=== PATIENT | female | born 2005 | race Caucasian/White ===

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

== ENCOUNTER → 2024-08-06 10:49 | Outpatient (BNVA) | payer BC, MEDICAID, SELFPAY | PROVIDERS: Visit Provider Nurse Practitioner Family | DX: R50.9 Fever, unspecified (principal) | CPT/HCPCS: 87400; 87426 ==

== ENCOUNTER 2024-12-10 15:19 | Emergency (ER) | payer BC, MEDICAID, SELFPAY ==
[2024-12-10 15:22] VITALS: BP 108/69; PULSE 67; RESP 17; TEMP 36.3; O2SAT 100; BMI 21.6
[2024-12-10 15:42] LABS: Basophils % 1.1 %; Eosinophils # 0.2 10^3/uL (0.0-0.8); Eosinophils % 4.6 %; Hematocrit 41.3 % (36-47); Lymphocytes # 1.4 10^3/uL (1.5-6.5); Mean Corpuscular HGB Conc 32.2 g/dL (30-55); Mean Corpuscular Hemoglobin 27.6 pg (27-33); Mean Corpuscular Volume 85.7 fl (85-98); Mean Platelet Volume 9.5 fL (7.4-10.4); Monocytes # 0.3 10^3/uL (0.2-0.9); Monocytes % 9.4 %; Neutrophils # 1.61 10^3/uL (1.8-8.0); Neutrophils % 45.9 %; Nucleated Red Blood Cells % 0 %; Platelet Count 326 10^3/cmm (157-399); Red Blood Count 4.82 10^6/uL (3.85-5.65); Red Cell Distribution Width 13.2 % (12.1-15.1); White Blood Count 3.51 10^3/uL (4.5-13.0)
[2024-12-10 15:56] VITALS: BP 113/62; PULSE 84; O2SAT 97
--- NOTE | 2024-12-10 16:03 | W.ED.ABDPA2 ---
HPI - Abdominal Pain General: Chief Complaint: Abdominal Pain Stated Complaint: abdominal pain Time Seen by Provider: 12/10/24 15:34 History of Present Illness: 19-year-old female presents emergency room with epigastric right upper quadrant abdominal pain and nausea it has been going on for the last 3 to 4 days. Worse when she eats relieved by not eating. She has had it to slightly lesser extent previously but cannot give me a timeframe of it. No fever sweats or chills no medic easy melena hematemesis or coffee-ground emesis. Associated Symptoms: Reports nausea and vomiting; Denies chills, dysuria and fever(s) Related Data Home Medications ?Medication ?Instructions ?Recorded ?Confirmed acetaminophen 500 mg tablet 1,000 mg PO Q6H PRN Fever Or Pain 12/10/24 12/10/24 (Tylenol Extra Strength) Previous Rx's ?Medication ?Instructions ?Recorded pantoprazole 40 mg tablet,delayed 40 mg PO DAILY #30 tabs 12/10/24 release sulfamethoxazole 800 1 tab PO BID 7 days #14 tabs 12/10/24 mg-trimethoprim 160 mg tablet (Bactrim DS) Allergies Allergy/AdvReac Type Severity Reaction Status Date / Time No Known Allergies Allergy Verified 12/10/24 15:24 Review of Systems Const: Denies: fever(s) or chills Card: Denies: chest pain Resp: Denies: dyspnea GI: Reports: abdominal pain, nausea and vomiting : Denies: dysuria, urinary frequency or urinary urgency Musc: Denies: neck pain or back pain Skin/Breast: Denies: rash [facility] ED PFSH: Medical History (Updated 12/10/24 @ 16:46 by Luis Van DO) BMI (body mass index), pediatric, 5% to less than 85% for age Surgical History No history of previous surgery Family History Denies family history of Colon cancer Ovarian cancer Diabetes Heart disease Hypercholesteremia Breast cancer Hypertension Uterine cancer Stroke Social History Smoking and tobacco/nicotine status: never used tobacco/nicotine Second hand smoke exposure: No Alcohol intake: never Substance/Drug Use: never Adopted: Yes Lives independently: Yes Household members: other Marital status: Single Highest education level completed: 9th Grade service: No Current occupational status: employed Sexually active: No Current gender identity: Female Special yulia needs: No Agree to transfusion: Yes Physical Exam Const: GENERAL APPEARANCE: cooperative ORIENTATION/CONSCIOUSNESS: Yes awake, Yes oriented to person, Yes oriented to place and Yes oriented to time HENMT: COMMON NORMALS: normocephalic, atraumatic and hearing grossly normal bilaterally HEAD & SCALP: normocephalic and atraumatic Resp: COMMON NORMALS: normal respiratory effort, No retractions, No use of accessory muscles and clear to auscultation bilaterally AUSCULTATION: clear to auscultation bilaterally Cardio: COMMON NORMALS: regular rate, regular rhythm and No murmurs present (Cardio) RATE: regular rate RHYTHM: regular rhythm GI: COMMON NORMALS: No hepatosplenomegaly present AUSCULTATION: Yes normoactive bowel sounds PALPATION: Yes Tenderness to palpation present (GI) Details: RUQ, No Guarding due to palpation present (GI) and Yes No hepatosplenomegaly present Extremity: COMMON NORMALS: normal to inspection, capillary refill normal, no clubbing, cyanosis or edema, no calf tenderness and no pedal edema Neuro: SENSORIUM/ORIENTATION: Yes oriented to person, Yes oriented to place and Yes oriented to time Skin: COMMON NORMALS: no rashes or lesions noted GENERAL SKIN EXAM: no rashes or lesions noted Course Vital Signs: Vital signs: Vital Signs Temperature 97.4 F L 12/10/24 15:22 Pulse Rate 80 12/10/24 17:04 Respiratory Rate 17 12/10/24 15:22 Blood Pressure 127/62 12/10/24 17:04 Pulse Oximetry 98 12/10/24 17:04 Oxygen Delivery Me thod Room Air 12/10/24 16:37 MDM - Abdominal Pain Medical Decision Making Patient has cystitis suspect she also has some reflux disease. She seemed to have little bit of a [place] sign initially on exam however ultrasound of gallbladder and liver enzymes are normal. She could have some biliary dyskinesia if her symptoms persist she may need further evaluation for now we will treat her cystitis additionally start her on pantoprazole have her follow-up with her primary care doctor return if has worsening or changes symptoms Medical Records I reviewed the patient's medical records. Lab Data I reviewed the patient's lab results. 12/10/24 15:35 12/10/24 15:35 Labs/Radiology: Radiology Impressions Gallbladder Ultrasound 12/10/24 16:12 IMPRESSION: No acute findings. Laboratory Results WBC 3.51 10^3/uL (4.5-13.0) L 12/10/24 15:35 RBC 4.82 10^6/uL (3.85-5.65) 12/10/24 15:35 Hgb 13.30 g/dL (12.4-14.8) 12/10/24 15:35 Hct 41.3 % (36-47) 12/10/24 15:35 MCV 85.7 fl (85-98) 12/10/24 15:35 MCH 27.6 pg (27-33) 12/10/24 15:35 MCHC 32.2 g/dL (30-55) 12/10/24 15:35 RDW 13.2 % (12.1-15.1) 12/10/24 15:35 Plt Count 326 10^3/cmm (157-399) 12/10/24 15:35 MPV 9.5 fL (7.4-10.4) 12/10/24 15:35 Neut % (Auto) 45.9 % 12/10/24 15:35 Lymph % (Auto) 39.0 % 12/10/24 15:35 [place] % (Auto) 9.4 % 12/10/24 15:35 Eos % (Auto) 4.6 % 12/10/24 15:35 Baso % (Auto) 1.1 % 12/10/24 15:35 Neut # (Auto) 1.61 10^3/uL (1.8-8.0) L 12/10/24 15:35 Lymph # (Auto) 1.4 10^3/uL (1.5-6.5) L 12/10/24 15:35 [place] # (Auto) 0.3 10^3/uL (0.2-0.9) 12/10/24 15:35 Eos # (Auto) 0.2 10^3/uL (0.0-0.8) 12/10/24 15:35 Baso # (Auto) 0.0 10^3/uL (0.0-0.1) 12/10/24 15:35 Nucleated RBC % (auto) 0 % 12/10/24 15:35 Nucleated RBCs # 0.0 /100WBC 12/10/24 15:35 Sodium 142 mmol/L (136-145) 12/10/24 15:35 Potassium 4.0 mmol/L (3.5-5.1) 12/10/24 15:35 Chloride 107 mmol/L (98-107) 12/10/24 15:35 Carbon Dioxide 25 mmol/L (22-29) 12/10/24 15:35 Anion Gap 14.0 (5-19) 12/10/24 15:35 BUN 9 mg/dL (6-20) 12/10/24 15:35 Creatinine 0.8 mg/dL (0.5-0.9) 12/10/24 15:35 GFR Calculation 91.4 mL/min (90-130) 12/10/24 15:35 Glucose 85 mg/dL (65-115) 12/10/24 15:35 Calculated Osmolality 292 mOsm/kg (285-295) 12/10/24 15:35 Calcium 9.0 mg/dL (8.5-10.5) 12/10/24 15:35 Total Bilirubin 0.2 mg/dL (0.15-1.2) 12/10/24 15:35 AST 16 U/L (0-32) 12/10/24 15:35 ALT 13 U/L (0-33) 12/10/24 15:35 Alkaline Phosphatase 112 U/L (35-105) H 12/10/24 15:35 Total Protein 7.4 g/dL (6.6-8.7) 12/10/24 15:35 Albumin 4.4 g/dL (3.5-5.2) 12/10/24 15:35 Globulin 3.0 g/dL (1.3-4.6) 12/10/24 15:35 Lipase 31 U/L (13-60) 12/10/24 15:35 HCG, Qual Negative (Negative) 12/10/24 15:35 Urine Color Yellow (Yellow) 12/10/24 15:49 Urine Appearance Slightly cloudy (CLEAR) 12/10/24 15:49 Urine pH 5 (5-7) 12/10/24 15:49 Ur Specific [place] 1.015 (1.005-1.030) 12/10/24 15:49 Urine Protein Trace (Negative) H 12/10/24 15:49 Urine Glucose (UA) Norm (Normal) 12/10/24 15:49 Urine Ketones Negative (Negative) 12/10/24 15:49 Urine Blood Neg (Negative) 12/10/24 15:49 Urine Nitrate Negative (Negative) 12/10/24 15:49 Urine Bilirubin Neg (Negative) 12/10/24 15:49 Urine Urobilinogen Norm mg/dL (Negative) 12/10/24 15:49 Ur Leukocyte Esterase 2+ (Negative) A 12/10/24 15:49 Urine RBC 0-2 /hpf (0-2) 12/10/24 15:49 Urine WBC 51-100 /hpf (0-5) H 12/10/24 15:49 Ur Squamous Epith Cells 11-20 /hpf (0-5) H 12/10/24 15:49 Amorphous Sediment Not Reportable 12/10/24 15:49 Urine Bacteria 4+ /hpf (NONE) H 12/10/24 15:49 Hyaline Casts 2.46 /lpf 12/10/24 15:49 Influenza A (PCR) Negative (Negative) 12/10/24 16:12 Influenza Type B (PCR) Negative (Negative) 12/10/24 16:12 RSV (PCR) Negative (Negative) 12/10/24 16:12 SARS-CoV-2 (PCR) Negative (Negative) 12/10/24 16:12 All radiology interpretation(s) finalized by discharge Discharge Plan Discharge Patient Disposition: Home Clinical Impression: Cystitis, GERD (gastroesophageal reflux disease) Condition: Stable Prescriptions: New sulfamethoxazole-trimethoprim [Bactrim DS] 800-160 mg tablet 1 tab PO BID 7 Days Qty: 14 0RF pantoprazole 40 mg tablet,delayed release (DR/EC) 40 mg PO DAILY Qty: 30 0RF No Action acetaminophen [Tylenol Extra Strength] 500 mg Tablet 1,000 mg PO Q6H PRN (Reason: Fever Or Pain) Discharge Orders: Discharge ED (Routine); Ordered 12/10/24 Ordered By: Luis Van Discharge Diet: Usual diet Discharge Activity: Resume usual activity Patient Instructions: Opioid Safety, Pain Management Activity Restrictions/Additional Instructions: Thank you for choosing [facility] for your healthcare needs today. It is very important that you follow up as instructed or that you return to the Emergency Department should you have concerns or if your condition changes or worsens in any way. You are seen emergency room with complaint of abdominal discomfort nausea vomiting. You did have a bladder infection we evaluated your gallbladder there is no sign of acute cholecystitis. Additionally you likely have some reflux based on the symptoms you reported we will start you on pantoprazole Print Language: Sinhala Coding Level of Care Code ED Aircraft Maintenance Instructor for Tal Chairez
[2024-12-10 16:04] LABS: Bacteria Urine 4+ /hpf; Hyaline Casts Urine 2.46 /lpf; RBC Urine 0-2 /hpf (0-2); WBC Urine 51-100 /hpf (0-5)
[2024-12-10 16:05] LABS: HCG, Serum Qual Negative (Negative)
[2024-12-10 16:09] LABS: Alanine Aminotransferase 13 U/L (0-33); Albumin Level 4.4 g/dL (3.5-5.2); Alkaline Phosphatase 112 U/L (35-105); Aspartate Amino Transferase 16 U/L (0-32); Blood Urea Nitrogen 9 mg/dL (6-20); Carbon Dioxide 25 mmol/L (22-29); Chloride 107 mmol/L (98-107); Creatinine Clr Calc Pharmacy 94.8728; Glomerular Filtration Rate 91.4 mL/min (90-130); Glucose 85 mg/dL (65-115); Lipase 31 U/L (13-60); Osmolality Calculated 292 mOsm/kg (285-295); Sodium 142 mmol/L (136-145); Total Bilirubin 0.2 mg/dL (0.15-1.2); Total Protein 7.4 g/dL (6.6-8.7)
--- NOTE | 2024-12-10 16:12 | USR_ITS ---
PROCEDURE INFORMATION: Exam: US Abdomen, Limited; Right Upper Quadrant Exam date and time: 12/10/2024 4:23 PM Age: 19 years old Clinical indication: Abdominal pain; Tenderness; Right upper quadrant (ruq); Additional info: Ruq abd pain TECHNIQUE: Imaging protocol: Real time ultrasound of the abdomen with image documentation. Limited exam focused on the right upper quadrant. COMPARISON: No relevant prior studies available. FINDINGS: Liver: Normal. No masses. Gallbladder: Normal. No gallstones. There is no gallbladder wall thickening. Biliary ducts: The common bile duct measures 2 mm within normal limits. Pancreas: Visualized pancreas is unremarkable. Right kidney: Right kidney measures 10.4 cm in length. No mass. No hydronephrosis. US/US gall bladder 23050 IMPRESSION: No acute findings.
[2024-12-10 16:13] LABS: Add Urine Microscopic? YES; Bilirubin Urine Neg (Negative); Blood Urine Neg (Negative); Glucose Urine UA Norm (Normal); Ketones Urine Negative (Negative); Leukocyte Esterase Urine 2+ (Negative); Nitrate Urine Negative (Negative); Protein Urine Trace (Negative); Specific Gravity, Urine 1.015 (1.005-1.030); Urine Appearance Slightly Cloudy (CLEAR); Urine Color Yellow (Yellow); Urobilinogen Urine Norm (Negative); pH Urine 5 (5-7)
[2024-12-10 16:14] LABS: Add Urine Culture? Yes
[2024-12-10 16:37] VITALS: BP 121/37; PULSE 69; O2SAT 98
[2024-12-10 16:56] LABS: Influenza A NEGATIVE (Negative); Influenza B NEGATIVE (Negative); Respiratory Syncytial Virus Ce NEGATIVE (Negative); SARS-CoV-2 PCR NEGATIVE (Negative)
[2024-12-10 17:04] VITALS: BP 127/62; PULSE 80; O2SAT 98
== END 2024-12-10 17:05 | disposition home or self-care (01) ==
PROVIDERS: Emergency Medicine; Emergency Provider Family Medicine
DX: N30.90 Cystitis, unspecified without hematuria (principal); K21.9 Gastro-esophageal reflux disease without esophagitis; Z11.52 Encounter for screening for COVID-19
CPT/HCPCS: 76705; 80053; 81001; 83690; 84703; 85025; 87086; 87637; 99284